=== PATIENT | female | born 1940 | race Caucasian/White ===

== ENCOUNTER → 2016-10-12 | Outpatient (CLI) | payer OTHER, MEDICARE | LOC: FIMAGING 09:44 | PROVIDERS: ATTEND Family Medicine | DX: Z12.31 Encounter for screening mammogram for malignant neoplasm of breast (principal); Z80.3 Family history of malignant neoplasm of breast | CPT/HCPCS: G0202 ==

== ENCOUNTER → 2017-03-30 | Outpatient (CLI) | payer OTHER, MEDICARE | LOC: FIMAGING 14:12 | PROVIDERS: ATTEND Internal Medicine Rheumatology | DX: Z13.820 Encounter for screening for osteoporosis (principal); M81.0 Age-related osteoporosis without current pathological fracture; Z78.0 Asymptomatic menopausal state; Z82.62 Family history of osteoporosis; Z79.890 Hormone replacement therapy; Z79.899 Other long term (current) drug therapy ==

== ENCOUNTER → 2017-08-30 | Outpatient (CLI) | payer OTHER ==
--- NOTE | 2017-08-30 12:21 | CPEEG ---
[f rep st] ELECTROENCEPHALOGRAM DATE OF STUDY: 08/30/2017 INTERPRETATION: Normal EEG during wakefulness and sleep. There were no potentially epileptogenic ab normalities present during the recording. REPORT: This EEG contains 9 Hz alpha activity over the posterior head regions. There was no abnorma l activation at rest, during photic stimulation, or hyperventilation. The patient became drowsy and fell asleep during the study. There was no abnormal activation during drowsiness, sleep, or during t imes of arousal. /[id number]/MODL
== END ==
LOC: FCPNEURO 07:45
PROVIDERS: ATTEND Psychiatry & Neurology Neurology
DX: G43.909 Migraine, unspecified, not intractable, without status migrainosus (principal); R41.0 Disorientation, unspecified

== ENCOUNTER → 2017-10-01 | Outpatient (CLI) | payer OTHER | LOC: FIMAGING 13:24 | PROVIDERS: ATTEND Internal Medicine | DX: M25.572 Pain in left ankle and joints of left foot (principal); Z87.81 Personal history of (healed) traumatic fracture ==

== ENCOUNTER → 2017-10-27 | Outpatient (CLI) | payer OTHER | LOC: FIMAGING 09:15 | PROVIDERS: ATTEND Internal Medicine | DX: Z12.31 Encounter for screening mammogram for malignant neoplasm of breast (principal); Z80.3 Family history of malignant neoplasm of breast ==

== ENCOUNTER 2018-10-06 15:02 | Emergency (ER) | payer OTHER ==
[2018-10-06] MEDS ORDERED: NS 1,000 ML IV ONE (15:57)
--- NOTE | 2018-10-06 16:01 | EDPHY ---
H & P Stated Complaint: generaslized abd pain, seen at [facility] x 3 last week Time Seen by Provider: 10/06/18 15:34 HPI/ROS: CHIEF COMPLAINT: Abdominal pain HISTORY OF PRESENT ILLNESS: 78-year-old female presents with abdominal pain. Onset of generalized abdominal pain 1 week ago. The pain has been constant and associated with dry heaves initially. She was seen at [facility] ED 4 days ago. Labs, urinalysis and abdominal ultrasound reportedly unremarkable. Since then, she has had persistent pain, moderate, and has been mainly lying in bed. Associated with loose stools. Not eating or drinking much. h/o UTI x 2 recently, stopped abx 5 days ago. REVIEW OF SYSTEMS: complete 10 point ROS reviewed and is negative except for the noted elements in the HPI Source: Patient - Personal History Current Tetanus Diphtheria and Acellular Pertussis (TDAP): Yes - Medical/Surgical History Hx Asthma: No Hx Chronic Respiratory Disease: No Hx Diabetes: No Hx Cardiac Disease: No Hx Renal Disease: No Hx Cirrhosis: No Hx Alcoholism: No Hx HIV/AIDS: No Hx Splenectomy or Spleen Trauma: No Other PMH: osteopoerosis, migraines, celiac, uti - Social History Smoking Status: Never smoked Alcohol Use: Sober Drug Use: None - Physical Exam Exam: General Appearance: Alert, pleasant Eyes: Pupils equal and round, no conjunctival pallor or injection ENT, Mouth: Mucous membranes moist Neck: Normal inspection Respiratory: Lungs are clear to auscultation Cardiovascular: Regular rate and rhythm Gastrointestinal: Abdomen is soft, diffuse tenderness, especially in the epigastrium, no peritoneal signs Neurological: A&O, nonfocal exam Skin: Warm and dry Extremities: Normal inspection Psychiatric: Mood and affect normal Constitutional: Initial Vital Signs Temperature (C) 37.4 C 10/06/18 15:08 Heart Rate 93 10/06/18 15:08 Respiratory Rate 18 10/06/18 15:08 Blood Pressure 147/125 H 10/06/18 15:08 O2 Sat (%) 96 10/06/18 15:08 O2 Delivery Mode Room Air Allergies/Adverse Reactions: cephalexin monohydrate [From Keflex] Allergy (Mild, Verified 07/16/10 11:51) gluten Allergy (Verified 10/06/18 15:05) Home Medications: Medication Instructions Recorded Imitrex 02/16/14 Thyroid 02/16/14 Albuterol Hfa Anes Only [Proair 2 puffs IH Q4 PRN #1 mdi 06/05/14 Hfa Icu (*)] Azithromycin [Zithromax] 250 mg PO DAILY #4 tab 06/05/14 Hydrocodone/APAP 5/325 [[place] 1 - 2 tab PO Q4 PRN #10 tab 06/09/14 5/325 (RX)] Ondansetron Odt [Zofran Odt 4 mg 4 mg PO Q4 PRN #10 tab 06/09/14 (RX)] Acyclovir 10/06/18 Alvesco 10/06/18 Calcium 10/06/18 Efudex 10/06/18 Estradiol 10/06/18 Macrobid 10/06/18 Naltrexone 10/06/18 Nitrofurantoin Macrobid [Macrobid] 100 mg PO BID #14 cap 10/06/18 Pantoprazole Sodium [Protonix 40mg 40 mg PO DAILY #20 tab 10/06/18 (*)] Vitamin D3 10/06/18 Medical Decision Making ED Course/Re-evaluation: This pt presents with persistent abd pain. Prior eval negative, including sono and CT abd/pelvis. On exam, pain is localized to epigastrium. GI cocktail given with near complete relief in epigastric discomfort. c/w acute gastritis/ PUD. Labs including lipase/LFT's unremarkable. UA c/w UTI. Urine cx sent. Will rx for UIT as well as PUD. Dietary instructions given. f/u PCP 2-3 days without fail. Warning signs discussed. Differential Diagnosis: Differential diagnosis includes though it is not limited to appendicitis, cholecystitis, diverticulitis, pyelonephritis, bowel perforation, small bowel obstruction. - Data Points Laboratory Results: Laboratory Results 10/06/18 15:42 10/06/18 15:42 Medications Given: Discontinued Medications Al Hydroxide/Mg Hydroxide (Maalox Susp) 30 ml PO ONCE ONE Stop: 10/06/18 17:11 Last Admin: 10/06/18 17:22 Dose: 30 ml Hyoscyamine Sulfate (Levsin, Hyomax-Sl) 0.25 mg PO ONCE ONE Stop: 10/06/18 17:11 Last Admin: 10/06/18 17:22 Dose: 0.25 mg Sodium Chloride (Ns) 1,000 mls @ 0 mls/hr IV EDNOW ONE; Wide Open PRN Reason: Protocol Stop: 10/06/18 15:58 Last Admin: 10/06/18 16:08 Dose: 1,000 mls Lidocaine (Lidocaine 2% Viscous) 15 ml PO ONCE ONE Stop: 10/06/18 17:11 Last Admin: 10/06/18 17:22 Dose: 15 ml Nitrofurantoin Macrocrystals (Macrobid) 100 mg PO EDNOW ONE PRN Reason: Protocol Stop: 10/06/18 18:20 Last Admin: 10/06/18 18:21 Dose: 100 mg Point of Care Test Results: Chemistry 10/06/18 16:10 POC Sodium 137 mEq/L mEq/L (135-145) POC Potassium 3.2 mEq/L L mEq/L (3.3-5.0) POC Chloride 99 mEq/L mEq/L (97-110) POC Total CO2 23 mEq/L mEq/L (22-31) POC BUN 8 mg/dL mg/dL (7-23) POC Creatinine 0.7 mg/dL mg/dL (0.6-1.0) POC Glucose 93 mg/dL mg/dL (70-100) ISTAT H&H 10/06/18 16:10 POC Hgb 13.6 gm/dL gm/dL (12.6-16.3) POC Hct 40 % % (38-47) Departure - Departure Disposition: Home, Routine, Self-Care Clinical Impression: Urinary tract infection Qualifiers: Urinary tract infection type: acute cystitis Hematuria presence: without hematuria Qualified Code(s): N30.00 - Acute cystitis without hematuria Acute gastritis Qualifiers: Gastritis type: other gastritis Gastritis bleeding: without bleeding Qualified Code(s): K29.00 - Acute gastritis without bleeding Condition: Good Instructions: Gastritis (ED), Urinary Tract Infection in Women (ED), Diet for Stomach Ulcers and Gastritis (ED) Additional Instructions: Take Mylanta 30 min before meals and at bedtime. Take Protonix as prescribed. Take Macrobid as prescribed. I sent a urine culture which will return in 2 days. Follow-up with your physician on Tuesday. Referrals: [facility] [Other] - As per Instructions Prescriptions: Nitrofurantoin Macrobid [Macrobid] 100 mg PO BID #14 cap Pantoprazole Sodium [Protonix 40mg (*)] 40 mg PO DAILY #20 tab
[2018-10-06 16:05] LABS: PLATELET COUNT 197 10^3/uL (150-400)
[2018-10-06] MEDS ORDERED: IOPAMIDOL (ISOVUE-300) 100 ML BTL ONE (16:26)
[2018-10-06] MEDS ORDERED: LIDOCAINE 2% VISCOUS 15 ML UDCUP PO ONE (17:10)
[2018-10-06] MEDS ORDERED: MAG HYDROX/AL HYDROX/SIMETH 30 ML UDCUP PO ONE (17:10)
[2018-10-06] MEDS ORDERED: HYOSCYAMINE SULFATE 0.125 MG TAB PO ONE (17:10)
[2018-10-06] MEDS ORDERED: NITROFURANTOIN MACROBID 100 MG CAP PO ONE ×2 (18:19)
[2018-10-06 18:28] VITALS: BP 162/68
--- NOTE | 2018-10-06 20:26 | CPEKG ---
Test Reason : OPEN Blood Pressure : / mmHG Vent. Rate : 092 BPM Atrial Rate : 092 BPM P-R Int : 183 ms QRS Dur : 107 ms QT Int : 377 ms P-R-T Axes : 070 -24 032 degrees QTc Int : 467 ms Sinus rhythm Left atrial enlargement Borderline left axis deviation Anteroseptal infarct, age indeterminate Confirmed by Staci Garza ([id number]) on 10/06/2018 8:25:17 PM Referred By: STACI GARZA Confirmed By:Staci Garza
== END 2018-10-06 18:27 | disposition home or self-care (01) ==
DX: N30.00 Acute cystitis without hematuria (principal); K29.00 Acute gastritis without bleeding; E86.9 Volume depletion, unspecified
CPT/HCPCS: 74177; 93005; 96360; 99285; Q9967; 82435-PO; 82565-PO; 82947-PO; 84132-PO; 84295-PO; 84520-PO; 85014-ER